=== PATIENT | male | born 1980 | race Caucasian/White ===

== ENCOUNTER 2021-08-11 10:30 | Emergency (ER) | payer OTHER ==
[~2021-08-11] VITALS: Ht 165.1 cm; Wt 68.0 kg
--- NOTE | 2021-08-11 10:40 | NUR ---
MD@bedside, medical screening exam in progress
[2021-08-11] MEDS: IV NORMAL SALINE 1000 ML BAG IV ONE ×3 (11:01→12:57)
[2021-08-11 11:16] LABS: HEMATOCRIT 39.7 % (36.7-47.1); MEAN CORPUSCULAR HEMOGLOBIN 30.4 uug (23.8-33.4); PLATELET COUNT (AUTO) 219 K/uL (152-348)
--- NOTE | 2021-08-11 11:19 | NUR ---
Urinal & iced water @bedside, denies nausea, he is calm & cooperative.
[2021-08-11 11:20] LABS: ALANINE AMINOTRANSFERASE 62 U/L (16-63); ALKALINE PHOSPHATASE 114 U/L (50-136); ASPARTATE AMINOTRANSFERASE 34 U/L (15-37); BILIRUBIN,TOTAL 0.4 mg/dL (0.2-1.0); CARBON DIOXIDE 25 mmol/L (21-32); CHLORIDE 97 mmol/L (98-107); LIPASE 29 U/L (73-393); TOTAL PROTEIN, SERUM 6.9 g/dL (6.4-8.2); UREA NITROGEN, BLOOD 9 mg/dL (7-18)
[2021-08-11 11:23] LABS: GLUCOSE 666 mg/dL (74-106)
[2021-08-11] MEDS: INSULIN REGULAR, HUMAN 300 UNIT/3 ML VIAL SQ ONE ×2 (11:41→12:58)
--- NOTE | 2021-08-11 11:46 | NUR ---
Patient is resting comfortably on gurney with eyes closed in high cuba's position, NAD.
[2021-08-11] MEDS ORDERED: INSULIN REGULAR, HUMAN 300 UNIT/3 ML VIAL ONE (11:47)
[2021-08-11 14:02] LABS: *BILIRUBIN,URIN NEGATIVE (NEGATIVE); *BLOOD, URINE NEGATIVE (NEGATIVE); *CLARITY,URINE CLEAR (CLEAR); *COLOR,URINE YELLOW (YELLOW); *KETONES,URINE NEGATIVE (NEGATIVE); *UROBILINOGEN,URINE 0.2 E.U./dl (NORMAL); LEUKOCYTE ESTERASE ,URINE NEGATIVE (NEGATIVE); NITRITE, URINE NEGATIVE (NEGATIVE); UGLUCOSE 2+ (NEGATIVE)
--- NOTE | 2021-08-11 14:06 | NUR ---
IV removed. Catheter intact and site benign. Pressure and 4x4 gauze applied to site. No bleeding noted. Patient discharged to home in stable condition and brisk steady gait. Written and verbal after care instructions given to patient. Patient verbalized understanding and compliance of instructions. Stressed follow up with primary doctor and alberene stone setter or return to ER for worsening s/s. Copies of all the tests' results were given to patient.
[2021-08-11 14:08] LABS: BACTERIA,URINE NONE SEEN /HPF (NONE SEEN); RBC,URINE NONE SEEN /HPF (0-3); WBC,URINE NONE SEEN /HPF (0-3)
--- NOTE | 2021-08-11 14:08 | NUR ---
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
[2021-08-11 14:09] LABS: SQUAMOUS EPITHELIAL CELL,UR NONE SEEN /HPF (NONE SEEN)
== END 2021-08-11 14:09 | disposition home or self-care (01) ==
LOC: ER 10:30
DX: E10.65 Type 1 diabetes mellitus with hyperglycemia (principal); Z79.4 Long term (current) use of insulin; R03.0 Elevated blood-pressure reading, without diagnosis of hypertension; E10.40 Type 1 diabetes mellitus with diabetic neuropathy, unspecified; F19.10 Other psychoactive substance abuse, uncomplicated; F17.210 Nicotine dependence, cigarettes, uncomplicated
CPT/HCPCS: 36415; 80053; 81001; 82009; 82962 ×3; 83690; 85025; 93005; 96360; 96361; 96372; 99291; 99406; J1815; A4663; J7030